=== PATIENT | male | born 1960 | race Caucasian/White ===

== ENCOUNTER 2017-08-23 06:50 | Emergency (ER) | payer BC ==
[2017-08-23] MEDS ORDERED: Sodium Chloride 0.9% 1,000 ML IV ONE (07:10)
[2017-08-23] MEDS ORDERED: Ondansetron 4 MG/2 ML SDV IVPUSH ONE (07:12)
[2017-08-23] MEDS ORDERED: HYDROmorphone 1 MG/ML Syringe IVPUSH ONE ×2 (07:12→07:44)
[2017-08-23 07:45] LABS: CHLORIDE,CL 102 mmol/L (98-115); SODIUM,NA 136 mmol/L (136-145)
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
[2017-08-23 08:54] VITALS: BP 138/81
[2017-08-23] MEDS ORDERED: Ciprofloxacin in D5W 400 MG in Premix Bag 1 BAG IV ONE ×2 (08:56)
[2017-08-23] MEDS ORDERED: metroNIDAZOLE/Normal Saline 500 MG in Premix Bag 1 BAG IV ONE (08:56)
[2017-08-23] MEDS ORDERED: Iopamidol 612 MG/ML 75 ML Bottle IV ONE (09:09)
[2017-08-23] MEDS: Sodium Chloride 0.9% 50 ML IV SCH ×2 (09:16→09:17)
== END 2017-08-23 11:45 | disposition home or self-care (01) ==
LOC: KA.ED 06:50
DX: K57.92 Diverticulitis of intestine, part unspecified, without perforation or abscess without bleeding (principal); I10 Essential (primary) hypertension; Z88.8 Allergy status to other drugs, medicaments and biological substances; Z88.2 Allergy status to sulfonamides; Z91.030 Bee allergy status; Z88.1 Allergy status to other antibiotic agents; Z79.899 Other long term (current) drug therapy; Z87.891 Personal history of nicotine dependence
CPT/HCPCS: 74177; 80053; 81001; 83690; 85025; 85610; 85730; 96361; 96365; 96367; 96375; 99284; J0744; J1170; J2405; J7030; J7050; Q9967

== ENCOUNTER 2018-11-14 07:55 | Day surgery (SDC) | payer BC ==
[~2018-11-14 07:55] MED LIST: Lidocaine 2% 100 MG/5 ML Syringe ONE; Midazolam 1 MG/ML 2 ML SDV ONE; Propofol 200 MG/20 ML SDV ONE; fentaNYL 100 MCG/2 ML SDV ONE
[2018-11-14] MEDS ORDERED: Midazolam 1 MG/ML 2 ML SDV IV ONE (07:56)
[2018-11-14] MEDS ORDERED: Lidocaine 2% 5 ML SDV INJECT ONE (07:56)
[2018-11-14] MEDS ORDERED: fentaNYL 100 MCG/2 ML SDV IV ONE (07:56)
[2018-11-14] MEDS ORDERED: Propofol 200 MG/20 ML SDV IV ONE (07:56)
[2018-11-14] MEDS ORDERED: Lactated Ringers 1,000 ML IV SCH (08:00)
[2018-11-14] MEDS ORDERED: Sodium Chloride 0.9% 10 ML Syringe FLUSH PRN (08:00)
--- NOTE | 2018-11-14 09:09 | PCM.PN ---
- General Info Date of Service: 11/14/18 - Review of Systems Systems Review Comment:: 58 y/o male with history of dysphagia here for EGD. He is medically stable to proceed with no recent significant changes to his health status. I have discussed the proposed EGD with the patient. Possible dilation explained. Risks reviewed and he agrees to proceed accepting risks. - Patient Data Vitals - Most Recent: Last Vital Signs Temp 98.1 F 11/14/18 08:00 Pulse 65 11/14/18 08:00 Resp 16 11/14/18 08:00 BP 159/102 H 11/14/18 08:00 Pulse Ox 96 11/14/18 08:00 Med Orders - Current: Current Medications Lactated Ringer's (Ringers, Lactated) 1,000 mls @ 30 mls/hr IV ASDIRECTED SARA Sodium Chloride (Saline Flush) 10 ml FLUSH Q8HR PRN PRN Reason: keep vein open Discontinued Medications Fentanyl (Sublimaze) Confirm Administered Dose 100 mcg .ROUTE .STK-MED ONE Stop: 11/14/18 07:56 Lidocaine HCl (Xylocaine 2%) Confirm Administered Dose 100 mg .ROUTE .STK-MED ONE Stop: 11/14/18 07:56 Midazolam HCl (Versed 1 Mg/Ml) Confirm Administered Dose 2 mg .ROUTE .STK-MED ONE Stop: 11/14/18 07:55 Propofol (Diprivan 20 Ml) Confirm Administered Dose 200 mg .ROUTE .STK-MED ONE Stop: 11/14/18 07:56 - Problem List Review Problem List Initiated/Reviewed/Updated: Yes - My Orders Last 24 Hours: My Active Orders 11/14/18 08:00 Patient Status [ADT] Routine Patient to Empty Bladder [RC] ASDIRECTED Peripheral IV Care [RC] . DIRECTED Verify Patient Consent Obtain [RC] ASDIRECTED Vital Signs [RC] PER UNIT ROUTINE Lactated Ringers [Ringers, Lactated] 1,000 ml IV ASDIRECTED Sodium Chloride 0.9% [Saline Flush] 10 ml FLUSH Q8HR PRN Peripheral IV Insertion Adult [OM.PC] Routine 11/14/18 Breakfast Nothing Per Oral Diet [DIET] - Assessment Assessment:: Dysphagia - Plan Plan:: EGD
--- NOTE | 2018-11-14 09:46 | PCM.OPNOTE ---
- General Post-Op/Procedure Note Date of Surgery/Procedure: 11/14/18 Operative Procedure(s): EGD with Biopsy and Esophageal Balloon Dilation Findings: Distal Esophageal stricture Hiatal Hernia with reflux esophagitis Pre Op Diagnosis: Dysphagia Post-Op Diagnosis: Hiatal Hernia with Reflux esophagitis and esophageal stricture Anesthesia Technique: MAC Primary Surgeon: Pelon Ferreira Pathology: Biopsies of Gastric Antrum Output, Urine Amount: 0 EBL in mLs: 2 Complications: None Condition: Good
--- NOTE | 2018-11-14 12:27 | OR ---
DATE OF SURGERY: 11/14/2018 SURGEON: Pelon Ferreira MD PREOPERATIVE DIAGNOSIS: Dysphagia. POSTOPERATIVE DIAGNOSIS: Hiatal hernia with reflux esophagitis and esophageal stricture. OPERATION PERFORMED: Esophagogastroduodenoscopy with [id number] balloon dilation of esophageal stricture and biopsy. INDICATIONS FOR SURGERY: This 58-year-old male developed increasing symptoms of dysphagia with food lodging in the lower part of his stomach over the last three months. There is also a family history of gastric cancer. The patient is referred today for upper endoscopy. FINDINGS: The patient does have a small hiatal hernia and at the GE junction, there is a mild degree of inflammation consistent with reflux esophagitis. At this level, there is a mild to moderate esophageal stricture. This does appear benign with no mass effect and appears to be related to the acid reflux. The remainder of the esophagus, stomach, and the 1st and 2nd portions of the duodenum appeared normal. No mass or other visible abnormalities was seen. PROCEDURE: The patient was taken to the operating room. He was given intravenous sedation and with him in the left lateral decubitus position, the esophagus is intubated with the Olympus gastroscope under direct visualization. This scope is advanced down through the esophagus, the GE junction is identified and the scope was able to advance into the stomach without difficulty. The scope was then advanced down into the duodenum where examination to the 3rd portion is performed. The scope was withdrawn back into the stomach. Random biopsies of the gastric antrum were taken to rule out H pylori and because of the patient's family history of gastric cancer. The stomach is otherwise carefully examined including retroflexed examination of the fundus. The GE junction was carefully examined and because of the patient's symptoms and mild stricture at this level, this region is dilated with a through the scope balloon to a diameter of 54-Swedish. This appeared to be well tolerated by the patient and there was visibly a slight improvement of the stricture with this dilation. Reinspection of the dilated area showed no sign of any complication. The esophagus is then re-examined as the scope was removed and the patient was taken from the operating room in satisfactory condition. ESTIMATED BLOOD LOSS: 2 mL. COMPLICATIONS: None. PROGNOSIS: Good. /[id number]/MODL
[2018-11-14 12:57] VITALS: BP 148/98; PULSE 62
== END 2018-11-14 11:20 | disposition home or self-care (01) ==
LOC: KA.SDS 07:55
PROVIDERS: ATTEND Surgery
DX: K22.2 Esophageal obstruction (principal); K29.50 Unspecified chronic gastritis without bleeding; K21.0 Gastro-esophageal reflux disease with esophagitis; K44.9 Diaphragmatic hernia without obstruction or gangrene; F17.200 Nicotine dependence, unspecified, uncomplicated; Z88.6 Allergy status to analgesic agent; Z88.2 Allergy status to sulfonamides; Z88.1 Allergy status to other antibiotic agents; Z91.030 Bee allergy status; Z79.01 Long term (current) use of anticoagulants; Z79.1 Long term (current) use of non-steroidal anti-inflammatories (NSAID); Z79.899 Other long term (current) drug therapy
CPT/HCPCS: 43233; 43239; J2001; J2250; J2704; J3010; J7120

== ENCOUNTER 2021-05-26 08:04 | Day surgery (SDC) | payer BC ==
[~2021-05-26 08:04] MED LIST changes: +Lactated Ringers 1,000 ML IV SCH; -Lidocaine 2% 100 MG/5 ML Syringe ONE; -Midazolam 1 MG/ML 2 ML SDV ONE; -Propofol 200 MG/20 ML SDV ONE; -fentaNYL 100 MCG/2 ML SDV ONE
[2021-05-26] MEDS ORDERED: Succinylcholine 200 MG/10 ML MDV IV ONE (08:05)
[2021-05-26] MEDS ORDERED: Rocuronium 50 MG/5 ML Vial IV ONE (08:05)
[2021-05-26] MEDS ORDERED: Ondansetron 4 MG/2 ML SDV ONE (08:05)
[2021-05-26] MEDS ORDERED: Neostigmine Methylsulfate 10 MG/10 ML MDV IV ONE (08:05)
[2021-05-26] MEDS ORDERED: ceFAZolin 1 GM Vial ONE ×3 (08:47→09:24)
[2021-05-26] MEDS ORDERED: Bacitracin/Neomycin/Polymyxin B Oint 0.9 GM U/D Packet ONE ×2 (08:48→09:35)
[2021-05-26] MEDS ORDERED: Bupivacaine 0.5% 30 ML SDV ONE (08:48)
[2021-05-26] MEDS ORDERED: fentaNYL 250 MCG/5 ML SDV ONE (08:49)
[2021-05-26] MEDS ORDERED: Propofol 200 MG/20 ML SDV ONE (08:50)
[2021-05-26] MEDS ORDERED: Ketorolac 30 MG/ML SDV ONE (08:50)
[2021-05-26] MEDS ORDERED: Midazolam 1 MG/ML 2 ML SDV ONE (08:50)
[2021-05-26] MEDS ORDERED: Dexamethasone 4 MG/ML SDV ONE (08:50)
[2021-05-26] MEDS ORDERED: Lidocaine 2% with EPINEPHrine 1:200,000 10 ML SDV ONE (08:58)
[2021-05-26] MEDS ORDERED: Lactated Ringers 1,000 ML ONE (09:23)
[2021-05-26] MEDS ORDERED: Sodium Chloride 0.9% 20 ML SDV ONE (09:24)
[2021-05-26] MEDS ORDERED: Bupivacaine 0.5% 30 ML SDV INFILT ONE ×2 (09:24)
[2021-05-26] MEDS ORDERED: Bacitracin/Neomycin/Polymyxin B Oint 0.9 GM U/D Packet TOP ONE (10:18)
[2021-05-26] MEDS ORDERED: Glycopyrrolate 0.2 MG/ML SDV ONE (10:42)
[2021-05-26 12:48] VITALS: BP 155/75; PULSE 93
== END 2021-05-26 13:05 | disposition home or self-care (01) ==
LOC: KA.SDS 08:04
PROVIDERS: ATTEND Surgery
DX: K40.90 Unilateral inguinal hernia, without obstruction or gangrene, not specified as recurrent (principal); I10 Essential (primary) hypertension; F17.210 Nicotine dependence, cigarettes, uncomplicated; Z98.890 Other specified postprocedural states; Z88.8 Allergy status to other drugs, medicaments and biological substances; Z88.2 Allergy status to sulfonamides; Z91.030 Bee allergy status; Z79.82 Long term (current) use of aspirin; Z79.899 Other long term (current) drug therapy
CPT/HCPCS: C1781; J0330; J0690; J1100; J1885; J2250; J2405; J2704; J2710; J3010; J3490; J7120

== ENCOUNTER 2022-02-08 10:58 | Emergency (ER) | payer BC | END 2022-02-08 12:30 | disposition home or self-care (01) | LOC: KA.ED 10:58 | DX: R07.89 Other chest pain (principal); Z20.822 Contact with and (suspected) exposure to COVID-19 | CPT/HCPCS: 71046; 99285 ==

== ENCOUNTER 2022-06-17 22:33 | Emergency (ER) | payer BC ==
[2022-06-17] MEDS ORDERED: Sodium Chloride 0.9% 10 ML Syringe FLUSH PRN (23:13)
[2022-06-17 23:41] LABS: ANION GAP 11.9 mmol/L (5-15); CHLORIDE,CL 106 mmol/L (98-107); ESTIMATED GFR 95 mL/min (>=60); SODIUM,NA 142 mmol/L (136-145)
[2022-06-18 04:35] VITALS: BP 119/83; PULSE 68
== END 2022-06-18 00:15 | disposition home or self-care (01) ==
LOC: KA.ED 22:33
DX: R07.89 Other chest pain (principal); K22.89 Other specified disease of esophagus; I10 Essential (primary) hypertension; E66.9 Obesity, unspecified; Z72.0 Tobacco use; Z88.2 Allergy status to sulfonamides; Z91.030 Bee allergy status; Z88.1 Allergy status to other antibiotic agents; Z88.8 Allergy status to other drugs, medicaments and biological substances; Z68.28 Body mass index [BMI] 28.0-28.9, adult
CPT/HCPCS: 71046; 80053; 82150; 83690; 83880; 84484; 85025; 93005; 93010; 99284; 99285; J3490

== ENCOUNTER 2022-07-06 09:57 | Day surgery (SDC) | payer BC ==
[2022-07-06] MEDS ORDERED: Propofol 200 MG/20 ML SDV IV ONE (09:58)
[2022-07-06] MEDS ORDERED: Glycopyrrolate 0.2 MG/ML SDV IVPUSH ONE (09:58)
[2022-07-06] MEDS ORDERED: Sodium Chloride 0.9% 10 ML Syringe FLUSH PRN (10:00)
[2022-07-06] MEDS: Lactated Ringers 1,000 ML IV SCH (11:00)
[2022-07-06] MEDS ORDERED: Propofol 200 MG/20 ML SDV ONE ×2 (11:35→12:06)
[2022-07-06] MEDS ORDERED: Midazolam 1 MG/ML 2 ML SDV ONE (11:35)
[2022-07-06] MEDS ORDERED: Lidocaine 2% 5 ML SDV ONE (11:35)
[2022-07-06 13:39] VITALS: BP 137/88; PULSE 66
== END 2022-07-06 13:50 | disposition home or self-care (01) ==
LOC: KA.SDS 09:57
PROVIDERS: ATTEND Surgery
DX: Z12.11 Encounter for screening for malignant neoplasm of colon (principal); K29.50 Unspecified chronic gastritis without bleeding; K57.30 Diverticulosis of large intestine without perforation or abscess without bleeding; K44.9 Diaphragmatic hernia without obstruction or gangrene; K21.9 Gastro-esophageal reflux disease without esophagitis; E78.5 Hyperlipidemia, unspecified; I10 Essential (primary) hypertension; E55.9 Vitamin D deficiency, unspecified; F17.200 Nicotine dependence, unspecified, uncomplicated; Z88.2 Allergy status to sulfonamides; Z88.6 Allergy status to analgesic agent; Z79.899 Other long term (current) drug therapy; Z79.82 Long term (current) use of aspirin; Z88.1 Allergy status to other antibiotic agents; Z98.890 Other specified postprocedural states; Z87.19 Personal history of other diseases of the digestive system
CPT/HCPCS: 00813; 36415; 84132; J2250; J2704; J3490; J7120

== ENCOUNTER 2023-04-04 11:05 | Emergency (ER) | payer BC ==
[2023-04-04] MEDS ORDERED: Sodium Chloride 0.9% 10 ML Syringe FLUSH PRN (11:19)
[2023-04-04 11:25] LABS: BASOPHILS ABSOLUTE AUTO 0.03 10^3/uL (0.00-0.10); BASOPHILS PERCENT AUTO 0.4 % (0.0-1.0); EOSINOPHILS ABSOLUTE AUTO 0.02 10^3/uL (0.10-0.30); EOSINOPHILS PERCENT AUTO 0.2 % (1.0-3.0); HEMOGLOBIN 13.9 g/dL (13.0-17.0); IMMATURE GRAN ABSOLUTE AUTO 0.06 10^3/uL (0.00-0.50); IMMATURE GRAN PERCENT AUTO 0.7 % (0.0-5.0); LYMPHOCYTES ABSOLUTE AUTO 1.35 10^3/uL (1.00-4.00); LYMPHOCYTES PERCENT AUTO 16.3 % (20.0-40.0); MEAN CORPUSCULAR HEMOGLOBIN 32.9 pg (27.0-31.0); MEAN CORPUSCULAR HGB CONC 33.9 g/dL (32.0-36.0); MEAN CORPUSCULAR VOLUME 97.2 fL (82.0-92.0); MEAN PLATELET VOLUME 9.4 fL (7.4-10.4); MONOCYTES ABSOLUTE AUTO 0.41 10^3/uL (0.10-0.80); MONOCYTES PERCENT AUTO 4.9 % (2.0-8.0); NEUTROPHILS ABSOLUTE AUTO 6.42 10^3/uL (2.50-7.00); NEUTROPHILS PERCENT AUTO 77.5 % (50.0-70.0); PLATELET COUNT,PLT 350 10^3/uL (150-400); RED BLOOD CELL COUNT 4.22 10^6/uL (4.50-6.00); RED CELL DISTRIBUTION WIDTH 13.2 % (11.5-14.5); WHITE BLOOD CELL COUNT,WBC 8.29 10^3/uL (5.00-10.00)
[2023-04-04] MEDS: Sodium Chloride 0.9% 1,000 ML IV ONE (11:30)
[2023-04-04] MEDS ORDERED: Naloxone 0.4 MG/ML SDV IVPUSH PRN (11:33)
[2023-04-04 11:41] LABS: LACTIC ACID 0.8 mmol/L (0.4-2.0)
[2023-04-04 11:46] LABS: APPEARANCE,URINE CLEAR (CLEAR); BILIRUBIN,URINE NEGATIVE (NEGATIVE); COLOR,URINE YELLOW (YELLOW); GLUCOSE,URINE NEGATIVE (NEGATIVE); KETONES,URINE NEGATIVE (NEGATIVE); LEUKOCYTE ESTERASE,URINE NEGATIVE (NEGATIVE); NITRITE,URINE NEGATIVE (NEGATIVE); OCCULT BLOOD,URINE NEGATIVE (NEGATIVE); PROTEIN,URINE NEGATIVE (NEGATIVE); UROBILINOGEN,URINE 0.2 E.U./dL (0.2-1.0)
[2023-04-04] MEDS: HYDROmorphone 1 MG/ML Syringe IVPUSH ONE (11:49)
[2023-04-04 11:51] LABS: ANION GAP 13.6 mmol/L (5-15); BILIRUBIN TOTAL 0.3 mg/dL (0.2-1.0); CALCIUM 8.8 mg/dL (8.7-10.3); CARBON DIOXIDE,CO2 26.1 mmol/L (21.0-32.0); CREATININE 0.73 mg/dL (0.51-1.17); EST CRCL DRUG DOSING (CG) 110.73 mL/min; POTASSIUM,K 3.7 mmol/L (3.5-5.1); PROTEIN TOTAL,TP 7.2 g/dL (6.4-8.2)
[2023-04-04] MEDS: Ondansetron 4 MG/2 ML SDV IVPUSH ONE (11:55)
[2023-04-04] MEDS: Iopamidol 755 Mg/ML 100 ML Bottle IV ONE (12:32)
[2023-04-04] MEDS: Sodium Chloride 0.9% 50 ML IV SCH (12:32)
[2023-04-04 13:47] VITALS: BP 143/95; PULSE 65
== END 2023-04-04 13:35 | disposition home or self-care (01) ==
LOC: KA.ED 11:05
DX: K57.32 Diverticulitis of large intestine without perforation or abscess without bleeding (principal); I10 Essential (primary) hypertension; F17.210 Nicotine dependence, cigarettes, uncomplicated; E66.9 Obesity, unspecified; Z79.899 Other long term (current) drug therapy; Z79.82 Long term (current) use of aspirin; Z88.2 Allergy status to sulfonamides; Z91.030 Bee allergy status; Z88.8 Allergy status to other drugs, medicaments and biological substances; Z88.6 Allergy status to analgesic agent; Z68.26 Body mass index [BMI] 26.0-26.9, adult
CPT/HCPCS: 36415; 74177; 80053; 81003; 82150; 83605; 83690; 84484; 85025; 87040; 96361; 96374; 96375; 99284; J1170; J2405; J3490; J7030; Q9967; 93010

== ENCOUNTER 2025-03-27 14:11 | Emergency (ER) | payer BC ==
[2025-03-27] MEDS ORDERED: Sodium Chloride 0.9% 10 ML Syringe FLUSH PRN (14:27)
[2025-03-27 14:41] LABS: BASOPHILS ABSOLUTE AUTO 0.03 10^3/uL (0.00-0.10); BASOPHILS PERCENT AUTO 0.2 % (0.0-1.0); EOSINOPHILS ABSOLUTE AUTO 0.12 10^3/uL (0.10-0.30); EOSINOPHILS PERCENT AUTO 1.0 % (1.0-3.0); IMMATURE GRAN ABSOLUTE AUTO 0.09 10^3/uL (0.00-0.04); IMMATURE GRAN PERCENT AUTO 0.7 % (0.0-0.4); LYMPHOCYTES ABSOLUTE AUTO 2.63 10^3/uL (1.00-4.00); LYMPHOCYTES PERCENT AUTO 21.4 % (20.0-40.0); MEAN PLATELET VOLUME 9.9 fL (7.4-10.4); MONOCYTES ABSOLUTE AUTO 1.33 10^3/uL (0.10-0.80); MONOCYTES PERCENT AUTO 10.8 % (2.0-8.0); NEUTROPHILS ABSOLUTE AUTO 8.11 10^3/uL (2.50-7.00); NEUTROPHILS PERCENT AUTO 65.9 % (50.0-70.0); PLATELET COUNT,PLT 247 10^3/uL (150-400); RED BLOOD CELL COUNT 4.56 10^6/uL (4.50-6.00); RED CELL DISTRIBUTION WIDTH 13.0 % (11.5-14.5); WHITE BLOOD CELL COUNT,WBC 12.31 10^3/uL (5.00-10.00)
[2025-03-27] MEDS: Ondansetron 4 MG/2 ML SDV IVPUSH ONE (14:51)
[2025-03-27 14:58] LABS: ALANINE AMINOTRANSFERASE,ALT 28.0 U/L (14-63); ASPARTATE AMNIOTRANSFERASE,AST 17.0 U/L (15-37); BILIRUBIN TOTAL 0.6 mg/dL (0.2-1.0); BLOOD UREA NITROGEN,BUN 19.0 mg/dL (7-18); CARBON DIOXIDE,CO2 27.6 mmol/L (21.0-32.0); CHLORIDE,CL 102.0 mmol/L (98-107); CREATININE 0.98 mg/dL (0.51-1.17); EST CRCL DRUG DOSING (CG) 80.28 mL/min; GLUCOSE RANDOM 94.0 mg/dL (70-140); POTASSIUM,K 3.6 mmol/L (3.5-5.1); PROTEIN TOTAL,TP 6.9 g/dL (6.4-8.2); SODIUM,NA 138.0 mmol/L (136-145)
[2025-03-27 14:59] LABS: ESTIMATED GFR 85.0 mL/min (>=60)
[2025-03-27 15:24] LABS: APPEARANCE,URINE CLEAR (CLEAR); GLUCOSE,URINE NEGATIVE (NEGATIVE); OCCULT BLOOD,URINE NEGATIVE (NEGATIVE)
[2025-03-27] MEDS: Iopamidol 755 Mg/ML 100 ML Bottle IV ONE (16:30)
[2025-03-27 17:05] VITALS: BP 163/93; PULSE 64
== END 2025-03-27 16:40 | disposition home or self-care (01) ==
LOC: KA.ED 14:11
DX: K80.20 Calculus of gallbladder without cholecystitis without obstruction (principal); K44.9 Diaphragmatic hernia without obstruction or gangrene; I10 Essential (primary) hypertension; E78.00 Pure hypercholesterolemia, unspecified; K21.9 Gastro-esophageal reflux disease without esophagitis; E66.9 Obesity, unspecified; E78.5 Hyperlipidemia, unspecified; Z79.899 Other long term (current) drug therapy; Z79.82 Long term (current) use of aspirin; Z88.8 Allergy status to other drugs, medicaments and biological substances; Z88.2 Allergy status to sulfonamides; Z91.030 Bee allergy status; Z68.30 Body mass index [BMI] 30.0-30.9, adult
CPT/HCPCS: 36415; 71045; 71275; 74177; 80053; 81003; 83690; 84484; 85025; 85379; 96361; 96374; 96375; 99284-25; J1171; J2405; J7030; Q9967